=== PATIENT | female | born 1995 | race Caucasian/White ===

== ENCOUNTER 2019-12-06 15:47 | Outpatient (CLI) | payer MEDICAID ==
--- NOTE | 2019-12-06 16:25 | Non Stress Test Report ---
Non Stress Test Datetime Report Generated by CPN: 12/06/2019 16:25 DEMOGRAPHIC Test Number: 1 EGA NST: 37.3 INDICATION Indication for Study (NST) Other: doctors orders VITAL SIGNS Temperature - NST: 97.8 Pulse - NST: 90 RESP - NST: 18 NBPSYS NST: 132 NBPDIA NST: 82 MONITORING Monitor Explained: Monitor Explained; Test Explained; Patient Verbalized Understanding Time on Monitor: 12/06/2019 15:59 Time off Monitor: 12/06/2019 16:23 NST Duration: 24 NST INTERVENTIONS NST Interventions: PO Hydration Physician Notified NST: nrobertson,cnm BABY A: [id number] BABY A Movement : Present Contraction Frequency : irritability noted FHR Baseline : 135 Accelerations : 15X15 Decelerations : None Variability : Moderate 6-25bpm NST Review: Meets Criteria for Reactive NST NST Review and Verified By : Attila Schmitz RN NST Results: Reactive NST REPORT Report Trigger: Send Report
== END 2019-12-06 16:35 | disposition home or self-care (01) ==
LOC: LC 15:47
PROVIDERS: ATTEND Obstetrics & Gynecology
DX: O47.1 False labor at or after 37 completed weeks of gestation (principal); Z3A.37 37 weeks gestation of pregnancy
CPT/HCPCS: 59025; 84112

== ENCOUNTER 2019-12-31 18:16 | Inpatient (IN) | payer MEDICAID ==
[2019-12-31] MEDS ORDERED: RINGERS SOLUTION,LACTATED 300 ML IV ONE (18:28)
[2019-12-31] MEDS ORDERED: ACETAMINOPHEN 325 MG TABLET PO PRN (18:28)
[2019-12-31] MEDS ORDERED: ZOLPIDEM TARTRATE 5 MG TABLET PO PRN (18:28)
[2019-12-31] MEDS ORDERED: DINOPROSTONE 10 MG VAGINAL INSERT.SR PV ONE (18:28)
[2019-12-31] MEDS ORDERED: RINGERS SOLUTION,LACTATED 1,000 ML IV PRN ×2 (18:28)
[2019-12-31] MEDS ORDERED: RINGERS SOLUTION,LACTATED 1,000 ML IV ONE (18:28)
[2019-12-31] MEDS ORDERED: MAG HYDROX/AL HYDROX/SIMETH SUSP 30 ML UDCUP PO PRN (18:28)
[2019-12-31 19:27] LABS: URINE AMPHETAMINES SCREEN NEGATIVE; URINE BARBITURATES SCREEN NEGATIVE; URINE BENZODIAZEPINES SCREEN NEGATIVE; URINE COCAINE SCREEN NEGATIVE; URINE MARIJUANA (THC) SCREEN NEGATIVE; URINE METHADONE SCREEN NEGATIVE; URINE PHENCYCLIDINE SCREEN NEGATIVE
[2019-12-31] MEDS ORDERED: MISOPROSTOL 0.2 MG TABLET ONE (19:43)
[2019-12-31] MEDS ORDERED: DINOPROSTONE 10 MG VAGINAL INSERT.SR ONE (19:43)
[2019-12-31] MEDS ORDERED: LIDOCAINE 1% INJ-PF (10 MG/ML) 30 ML SDV ONE (19:43)
[2019-12-31] MEDS ORDERED: OXYTOCIN/0.9 % SODIUM CHLORIDE 30 UNIT/500 ML RTUINJ ONE (19:43)
[2019-12-31] MEDS ORDERED: OXYTOCIN 10 UNIT/ML VIAL ONE (19:43)
[2019-12-31 19:57] LABS: HEMATOCRIT 35.6 % (36.0-47.0); HEMOGLOBIN 12.2 g/dL (12.0-15.5); MEAN CORPUSCULAR HEMOGLOBIN 30.9 pg (27.0-33.4); MEAN CORPUSCULAR HGB CONC 34.4 g/dL (32.0-36.0); MEAN CORPUSCULAR VOLUME 90 fl (80-97); PLATELET COUNT 166 10^3/uL (150-450); RED BLOOD COUNT 3.96 10^6/uL (3.72-5.28); RED CELL DISTRIBUTION WIDTH 15.3 % (11.5-14.0); WHITE BLOOD COUNT 7.3 10^3/uL (4.0-10.5)
[2020-01-01] MEDS ORDERED: OXYTOCIN/0.9 % SODIUM CHLORIDE 30 UNIT/500 ML RTUINJ IV PRN ×2 (01:41→09:54)
[2020-01-01] MEDS ORDERED: PROMETHAZINE HCL INJ 25 MG/1 ML VIAL IV PRN (01:41)
[2020-01-01] MEDS ORDERED: ACETAMINOPHEN 650 MG SUPP.RECT PR PRN (01:41)
[2020-01-01] MEDS ORDERED: MAGNESIUM HYDROXIDE SUSP 30 ML UDCUP PO PRN (01:41)
[2020-01-01] MEDS ORDERED: PROMETHAZINE HCL 25 MG SUPP.RECT PR PRN (01:41)
[2020-01-01] MEDS ORDERED: DIBUCAINE 1% OINTMENT 28 GM TP PRN (01:41)
[2020-01-01] MEDS ORDERED: ZOLPIDEM TARTRATE 5 MG TABLET PO PRN (01:41)
[2020-01-01] MEDS ORDERED: PROMETHAZINE HCL 25 MG TABLET PO PRN (01:41)
[2020-01-01] MEDS ORDERED: GLYCERIN/WITCH HAZEL LEAF 1 EACH MED..WIPE TP PRN (01:41)
[2020-01-01] MEDS ORDERED: BENZOCAINE/MENTHOL AEROSOL SPRAY 56 ML TOP PRN (01:41)
[2020-01-01] MEDS ORDERED: PSEUDOEPHEDRINE HCL 30 MG TABLET PO PRN (01:41)
[2020-01-01] MEDS ORDERED: ACETAMINOPHEN WITH CODEINE #3 TABLET PO PRN ×2 (01:41)
[2020-01-01] MEDS ORDERED: DIPHENHYDRAMINE HCL 25 MG CAPSULE PO PRN (01:41)
[2020-01-01] MEDS ORDERED: MEASLES,MUMPS&RUBELLA VACC/PF 0.5 ML VIAL SUBCUT PRN (01:41)
[2020-01-01] MEDS ORDERED: ACETAMINOPHEN 325 MG TABLET PO PRN (01:41)
[2020-01-01] MEDS ORDERED: NA PHOS,M-B/NA PHOS,DI-BA (ADULT) 133 ML ENEMA PR PRN (01:41)
[2020-01-01] MEDS ORDERED: DIPH/PERTUSS(ACELL)/TETANUS VAC/PF 0.5 ML SYR (>=10YO) IM PRN (01:41)
--- NOTE | 2020-01-01 01:50 | Admission Physical ---
Datetime Report Generated by CPN: 01/01/2020 01:50 CURRENT ADMISSION Chief Complaint: Scheduled Induction of Labor Indication for Induction: Post Dates Admit Impression : Term, Intrauterine Admit Plan: Admit to Unit; Initiate Labor Protocol; Initiate Labor Induction Protocol ALLERGIES Medication Allergies: No Medication Allergies: No Known Allergies (12/31/2019) Latex: No Latex Allergies Food Allergies: none Environmental Allergies: none OBSTETRICAL HISTORY EDC: 12/24/2019 00:00 : 1 Para: 0 Term: 0 : 0 SAB: 0 IAB: 0 Ectopic: 0 Livin Cesareans: 0 VBACs: 0 Multiple Births: 0 Gestational Diabetes: No Rh Sensitization: No Incompetent Cervix: No IRON: No Infertility: No ART Treatment: No Uterine Anomaly: No IUGR: No Hx Previous C/S: No Macrosomia: No Hx Loss/Stillborn: No PIH: No Hx : No Placenta Previa/Abruption: No Depression/PP Depression: No PTL/PROM: No Post Hemorrhage: No Current Procedures: Ultrasound Obstetrical History Comments: g1-current SEE RECORDS Alcohol: No Marijuana : No Cocaine: No Other Illicit Drugs: No Cigarettes: Never Smoker. [id number] MEDICAL HISTORY Diabetes: No Blood Transfusion: No Pulmonary Disease (Asthma, TB): No Breast Disease: No Hypertension: No Counter Stacker Surgery: No Heart Disease: No Hosp/Surgery: No Autoimmune Disorder: No Anesthetic Complications: No Kidney Disease: No Abnormal Pap Smear: No Neuro/Epilepsy: No Psychiatric Disorders: No Other Medical Diseases: No Hepatitis/Liver Disease: No Significant Family History: No Varicosities/Phlebitis: No Trauma/Violence : No Thyroid Dysfunction: No INFECTIOUS HISTORY Gonorrhea: No Genital Herpes: No Chlamydia: No Tuberculosis: No Syphilis: No Hepatitis: No HIV/AIDS Exposure: No Rash or Viral Illness: No HPV: No PHYSICAL EXAM General: Normal HEENT: Normal Neurologic: Normal Thyroid: Normal Heart: Normal Lungs: Normal Breast: Normal Back: Normal Abdomen: Normal Genitourinary Exam: Normal Extremities: Normal DTRs: Normal Pelvic Type: Adequate Vital Signs: Reviewed; Within Normal Limits VAGINAL EXAM Dilatation: 1 Effacement: 50 Station: -3 MEMBRANES Membranes: Intact FETUS A EGA: 41.0 Monitoring: External US FHR- Baseline: 135 Variability: Moderate 6-25bpm Accelerations: 15X15 Decelerations: None FHR Category: Category I Admit Comment: G1 at 41.1 wks EGA for IOL d/t post dates -admit to LDR -NPO and IVFs -CEFM and toco -GBS negative -cervidil at 2114 -anticipate PLANS FOR LABOR AND DELIVERY Labor and Delivery: None Pain Management: Epidural Feeding Preference: Breast Benefit of Breast Feed Discussed: Yes Circumcision: Yes INFORMED CONSENT Signature: with User ID: Nicola : with User ID: Nicola
[2020-01-01] MEDS: IBUPROFEN 800 MG TABLET PO SCH ×3 (07:22→15:18)
--- NOTE | 2020-01-01 10:13 | L&D Progress Notes ---
PROGRESS NOTES Datetime Report Generated by CPN: 01/01/2020 10:13 PROGRESS NOTE Impression Other: IUP @ [id number] Procedures: Sterile Vag Exam Procedures- Other: removal of cervidil Plan: Continue Present Management; Induction Informed Consent Obtained: Vaginal Delivery; Induction of Labor; Risks, Benefits and Alternatives Discussed Vital Signs : Reviewed; Within Normal Limits Comment: S: breathing with contractions, reports them to be more painful and more frequent, no concerns at this time O: VSS, Cat I tracing, cervix as stated A: IUP @ [id number] stable, progressing well P: continue IOL will start pitocin at the end of the hour break. Pt to shower at this time, epidural/IV pain meds prn, will reasses in 3-4hrs or earlier prn VAGINAL EXAM Dilatation: 1 Effacement: 50 Station: -3 Contractions: irregular LAST VAGINAL EXAM-NURSING Nursing Exam Dilitation: 2.0 Nursing Exam Effacement: 80 Nursing Exam Station: -1 MEMBRANES Membranes: Intact FETUS A Monitoring: External US : 41.1 SIGNATURE SIGNATURE: [id number] Assignment: Wen Haro MD Signature: with User ID: [email or web address] : with User ID: [email or web address]
[2020-01-01] MEDS ORDERED: PROMETHAZINE HCL INJ 25 MG/1 ML VIAL IV ONE (11:12)
[2020-01-01] MEDS ORDERED: NALBUPHINE HCL INJ 10 MG/1 ML AMPULE IV ONE (11:12)
[2020-01-01] MEDS: FAMOTIDINE 20 MG TABLET PO SCH (11:29)
[2020-01-01] MEDS: FERROUS SULFATE 325 MG TABLET PO SCH (11:29)
[2020-01-01] MEDS: DOCUSATE SODIUM 100 MG CAPSULE PO SCH (11:29)
[2020-01-01] MEDS: PRENATAL VITAMIN W DHA CAPSULE PO SCH (11:30)
[2020-01-01] MEDS: SENNOSIDES/DOCUSATE 8.6-50 MG 1 EACH TABLET PO SCH (11:30)
[2020-01-01] MEDS ORDERED: PROMETHAZINE HCL INJ 25 MG/1 ML VIAL ONE (11:31)
[2020-01-01] MEDS ORDERED: NALBUPHINE HCL INJ 10 MG/1 ML AMPULE ONE (11:31)
--- NOTE | 2020-01-01 14:38 | L&D Progress Notes ---
PROGRESS NOTES Datetime Report Generated by CPN: 01/01/2020 14:38 PROGRESS NOTE Impression Other: IUP@ [id number] Procedures: Artificial ROM; Sterile Vag Exam Procedures- Other: removal of cervidil Plan: Continue Present Management; Induction Informed Consent Obtained: Vaginal Delivery; Induction of Labor; Risks, Benefits and Alternatives Discussed Vital Signs : Reviewed; Within Normal Limits Comment: S: sleeping in between contractions, no concerns at this time, agreeable to AROM O:VSS, cat I tracing, pit @ 20mu/min, cervix and contractions as stated A: IUP@[id number]-SNU stable, progressing well P: continue IOL, epidural prn, report given to Dr. Haro on pt's progress VAGINAL EXAM Dilatation: 1 Effacement: 50 Station: -3 Contractions: 1.5-5.5 LAST VAGINAL EXAM-NURSING Nursing Exam Dilitation: 3.0 Nursing Exam Effacement: 80 Nursing Exam Station: -1 MEMBRANES Membranes: Ruptured Amniotic Fluid Color: Clear FETUS A Monitoring: External US FHR Category: Category I : 41.1 SIGNATURE SIGNATURE: [id number] Assignment: Wen Haro MD Signature: with User ID: [email or web address] : with User ID: [email or web address]
[2020-01-01] MEDS ORDERED: EPHEDRINE SULFATE INJ 50 MG/1 ML AMPULE ONE ×2 (15:12→22:12)
[2020-01-01] MEDS ORDERED: FENTANYL/BUPIVACAINE/NS/PF 300 MCG/150 ML RTUINJ EPI ONE (15:13)
[2020-01-01] MEDS ORDERED: ROPIVACAINE HCL 0.2% INJ/PF (2 MG/ML) 20 ML SDV ONE (15:14)
--- NOTE | 2020-01-01 17:24 | L&D Progress Notes ---
PROGRESS NOTES Datetime Report Generated by CPN: 01/01/2020 17:23 PROGRESS NOTE Impression Other: IUP @ 41w1d Procedures: Intrauterine Pressure Catheter; Scalp Electrode; Sterile Vag Exam Procedures- Other: removal of cervidil Plan: Continue Present Management; Induction Informed Consent Obtained: Induction of Labor; Risks, Benefits and Alternatives Discussed Vital Signs : Reviewed; Within Normal Limits Comment: S: comfortable with epidural placement O: VSS, cervix as stated with small amount of caput, pit @ 20mu/min A: IUP @ 41w1d- status post epidural placement, had repetitive late decels then ephedrine given and back to Cat I tracing then Cat II again after placement of internal monitors P: continue IOL but will hold pitocin at this time, Pt being repositioned, will re-start pit with reactive strip VAGINAL EXAM Dilatation: 4 Effacement: 90 Station: -1 Contractions: 1.5-2 LAST VAGINAL EXAM-NURSING Nursing Exam Dilitation: 3.0 Nursing Exam Effacement: 80 Nursing Exam Station: -1 Nursing Exam Contractions: UTD d/t intermittent signal MEMBRANES Membranes: Ruptured Amniotic Fluid Color: Clear FETUS A Monitoring: External US FHR Category: Category II : 41.1 SIGNATURE SIGNATURE: [id number] Assignment: Wen Haro MD Signature: with User ID: [email or web address] : with User ID: [email or web address]
[2020-01-02] MEDS ORDERED: AMPICILLIN SOD INJ 2 GM VIAL ONE (01:15)
[2020-01-02] MEDS ORDERED: GENTAMICIN SULFATE INJ 80 MG/2 ML VIAL ONE (01:15)
[2020-01-02] MEDS ORDERED: ACETAMINOPHEN 325 MG TABLET ONE (01:15)
[2020-01-02] MEDS: ACETAMINOPHEN 325 MG TABLET PO ONE ×2 (01:35→10:11)
[2020-01-02] MEDS ORDERED: AMPICILLIN SOD INJ 2 GM VIAL IV ONE (01:45)
[2020-01-02] MEDS ORDERED: GENTAMICIN SULFATE INJ 80 MG/2 ML VIAL IV ONE (01:45)
[2020-01-02] MEDS ORDERED: IBUPROFEN 800 MG TABLET ONE (03:01)
[2020-01-02] MEDS: IBUPROFEN 800 MG TABLET PO SCH ×4 (03:02→21:01)
--- NOTE | 2020-01-02 03:20 | Delivery Summary ---
Del Sum A-C Datetime Report Generated by CPN: 01/02/2020 03:19 DELIVERY PERSONNEL DELIVERY PERSONNEL: [id number] Delivery Doctor:: Wen Haro MD Labor and Delivery Nurse:: Briana Rich RNwood bucker Nurse:: Jewell Harry RN Nursery Nurse:: Eden Rocha RN Soil And Plant Scientist/TAPE CUTTING MACHINE OPERATOR: Deanne Samaniego, ST MATERNAL INFORMATION Delivery Anesthesia: Epidural Medications After Delivery: Pitocin 30 Units in 500ml NS/D5W; Cytotec 1000mcg Per Rectum/Vagina Estimated Blood Loss (ml): 250 Maternal Complications: None LABOR SUMMARY EDC: 12/24/2019 00:00 No. Babies in Womb: 1 Attempted: No Labor Anesthesia: Epidural LABOR INFORMATION Reason for Induction: Post Dates Onset of Labor: 01/01/2020 21:29 Complete Dilatation: 01/02/2020 01:18 Cervical Ripening Agents: Cervidil Oxytocin: Induction Group B Beta Strep: neg Antibiotics # of Doses: n/a Steroids Given: None Reason Steroids Not Administered: Not Applicable MEMBRANES Membranes Rupture Method: Artificial Rupture of Membranes: 01/01/2020 14:12 Length of Rupture (hr): 11.60 Amniotic Fluid Color: Clear Amniotic Fluid Amount: Small Amniotic Fluid Odor: Normal STAGES OF LABOR Stage 1 hr: 3 Stage 1 min: 49 Stage 2 hr: 0 Stage 2 min: 30 Stage 3 hr: 0 Stage 3 min: 2 Total Time in Labor hr: 4 Total Time in Labor min: 21 VAGINAL DELIVERY Episiotomy: None Laceration #1: None Laceration Extension #1: N/A Laceration Repair: Not Applicable Sponge Count Correct: Yes Sharps Count Correct: Yes CSECTION DELIVERY Primary Indication: N/A Secondary Indication: N/A CSection Incidence: N/A Labor: N/A Elective: N/A BABY A INFORMATION Infant Delivery Date/Time: 01/02/2020 01:48 Method of Delivery: Vaginal Born in Route : No : N/A Forceps: N/A Vacuum Extraction: N/A Shoulder Dystocia : No PRESENTATION/POSITION BABY A Presentation: Cephalic Cephalic Presentation: Vertex Vertex Position: Left Occipital Anterior Breech Presentation: N/A PLACENTA INFORMATION BABY A Placenta Delivery Time : 01/02/2020 01:50 Placenta Method of Delivery: Spontaneous Placenta Status: Delivered SCORES BABY A Heart Rate 1 min: >100 bpm Resp Effort 1 min: Good Cry Reflex Irritability 1 min: Cough or Sneeze or Pulls Away Muscle Tone 1 min: Active Motion Color 1 min: Blue/Pale Resuscitation Effort 1 min: Tactile Stimulation SCORE 1 MIN: 8 Heart Rate 5 min: >100 bpm Resp Effort 5 min: Good Cry Reflex Irritability 5 min: Cough or Sneeze or Pulls Away Muscle Tone 5 min: Active Motion Color 5 min: Body [place], Extremities Blue Resuscitation Effort 5 min: Tactile Stimulation SCORE 5 MIN: 9 INFANT INFORMATION BABY A Gestational Age at Delivery: 41.2 Gestational Status: Late Term- 41- 41.6 Weeks Infant Outcome : Liveborn Infant Condition : Stable Infant Sex: Male IDENTIFICATION BABY A Infant Verification Date/Time: 01/02/2020 01:54 ID Band Number: [id number] Mother's Name Verified: Yes Infant RN Verifying Infant: , RN and Bhanu, RN WEIGHT/LENGTH BABY A Birthweight (gm): 3750 Infant Weight (lb): 8 Infant Weight (oz): 4 Infant Length (in): 20.50 Infant Length (cm): 52.07 CORD INFORMATION BABY A No. Cord Vessels: 3 Nuchal Cord : N/A Cord Blood Taken: Yes-For Eval (Mom's Blood Type - or O+) ASSESSMENT BABY A Infant Complications: Multiple Late Decels Physical Findings at Delivery: Within Normal Limits Infant Respirations: Appears Normal Skin Lap Bonder/ALS Called : No Infant Care By: Jermaine, RN Transferred To: Remains with Mother BABY B INFORMATION : N/A SIGNATURES Signature: with User ID: [email or web address]
[2020-01-02] MEDS ORDERED: AMPICILLIN SOD/SULBACTAM 3 GM VIAL IV SCH (03:30)
[2020-01-02 04:12] LABS: HEMATOCRIT 34.1 % (36.0-47.0); HEMOGLOBIN 11.7 g/dL (12.0-15.5); MEAN CORPUSCULAR HEMOGLOBIN 30.7 pg (27.0-33.4); MEAN CORPUSCULAR HGB CONC 34.5 g/dL (32.0-36.0); MEAN CORPUSCULAR VOLUME 89 fl (80-97); PLATELET COUNT 156 10^3/uL (150-450); RED BLOOD COUNT 3.82 10^6/uL (3.72-5.28); RED CELL DISTRIBUTION WIDTH 15.3 % (11.5-14.0); WHITE BLOOD COUNT 19.1 10^3/uL (4.0-10.5)
--- NOTE | 2020-01-02 09:43 | PDOC PROGRESS REPORT ---
Subjective-OB Progress Note for:: 12/26/19 Subjective: Sitting up in bed, hsb at BS, no c/o, voiding, , normal lochia Physical Exam (OB) Vital Signs: Temp Pulse Resp BP Pulse Ox 97.8 F 90 18 118/64 98 01/02/20 07:37 01/02/20 07:37 01/02/20 07:37 01/02/20 07:37 01/02/20 07:37 Intake & Output 01/01/20 01/02/20 01/03/20 06:59 06:59 06:59 Weight 110 kg - PIH/Pre-Eclampsia DTR's: 2 + Clonus: Negative Headache: Absent Epigastric Pain: No Visual Changes: No - Lochia Lochia Amount: Scant < 10 ml Lochia Color: Rubra/Red - Abdomen Description: Soft, Round Hernia Present: No Fundal Description: Firm, Midline Fundal Height: u/u - u/2 Objective-Diagnostic Laboratory: 01/02/20 03:54 01/02/20 01/02/20 03:54 03:54 WBC 19.1 H D RBC 3.82 Hgb 11.7 L Hct 34.1 L MCV 89 MCH 30.7 MCHC 34.5 RDW 15.3 H Plt Count 156 Blood Type O NEGATIVE Antibody Screen NEGATIVE Assessment and Plan(PN) - Assessment and Plan (1) Rh negative status during Qualifiers: Trimester: first trimester Qualified Code(s): O26.891 - Other specified related conditions, first trimester; Z67.91 - Unspecified blood type, Rh negative Is this a current diagnosis for this admission?: Yes (2) Maternal fever during labor, delivered Is this a current diagnosis for this admission?: Yes (3) Delivery normal Is this a current diagnosis for this admission?: Yes (4) Encounter for induction of labor Is this a current diagnosis for this admission?: Yes - Time Spent with Patient Time with patient: Less than 15 minutes Medications reviewed and adjusted accordingly: Yes - Disposition Anticipated Discharge: Home Within: within 24 hours
[2020-01-02] MEDS: FAMOTIDINE 20 MG TABLET PO SCH ×3 (10:10→21:01)
[2020-01-02] MEDS: FERROUS SULFATE 325 MG TABLET PO SCH ×3 (10:10→17:20)
[2020-01-02] MEDS: DOCUSATE SODIUM 100 MG CAPSULE PO SCH ×3 (10:10→17:20)
[2020-01-02] MEDS: SENNOSIDES/DOCUSATE 8.6-50 MG 1 EACH TABLET PO SCH (10:17)
[2020-01-02] MEDS: PRENATAL VITAMIN W DHA CAPSULE PO SCH (10:17)
[2020-01-03] MEDS: IBUPROFEN 800 MG TABLET PO SCH ×3 (05:15→22:19)
[2020-01-03] MEDS: PRENATAL VITAMIN W DHA CAPSULE PO SCH (09:37)
[2020-01-03] MEDS: SENNOSIDES/DOCUSATE 8.6-50 MG 1 EACH TABLET PO SCH (09:37)
[2020-01-03] MEDS: DOCUSATE SODIUM 100 MG CAPSULE PO SCH ×2 (09:37→18:05)
[2020-01-03] MEDS: FAMOTIDINE 20 MG TABLET PO SCH ×2 (09:37→22:18)
--- NOTE | 2020-01-03 09:37 | PDOC PROGRESS REPORT ---
Subjective-OB Progress Note for:: 01/03/20 - PP Day #1, doing well, O negative, rubella immune, , denies fever, chills. malaise, UOB voidng, in the NICU feeding her baby. Talked w/ pt via facetime Physical Exam (OB) Vital Signs: Temp Pulse Resp BP Pulse Ox 97.4 F 89 18 116/75 100 01/02/20 20:15 01/02/20 20:15 01/02/20 20:15 01/02/20 20:15 01/02/20 20:15 Intake & Output 01/02/20 01/03/20 01/04/20 06:59 06:59 06:59 Intake Total 1600 Balance 1600 - General General Appearance: Appears well, Alert In distress: None - PIH/Pre-Eclampsia DTR's: 2 + Clonus: Negative Headache: Absent Epigastric Pain: No Visual Changes: No - Lochia Lochia Amount: Small 10-25 ml Lochia Color: Rubra/Red - Abdomen Description: Soft, Round Hernia Present: No Fundal Description: Firm, Midline Fundal Height: u/u - u/2 - Respiratory Respiratory Status: No respiratory distress - Genitourinary Genitourinary Note: voiding - Extremities Upper extremity: Normal inspection - Neurological Cognition: Normal Orientation: AAOx4 - Psychological Associated symptoms: Normal affect, Normal mood Objective-Diagnostic Laboratory: 01/02/20 03:54 Assessment and Plan(PN) - Assessment and Plan (1) Delivery normal Is this a current diagnosis for this admission?: Yes (2) Encounter for induction of labor Is this a current diagnosis for this admission?: Yes (3) Maternal fever during labor, delivered Is this a current diagnosis for this admission?: Yes (4) Rh negative status during Qualifiers: Trimester: first trimester Qualified Code(s): O26.891 - Other specified related conditions, first trimester; Z67.91 - Unspecified blood type, Rh negative Is this a current diagnosis for this admission?: Yes Plan:: Ambulation encouraged, Routine PP orders, watch for reoccuring Maternal temp. - Time Spent with Patient Time with patient: Less than 15 minutes Medications reviewed and adjusted accordingly: Yes - Disposition Anticipated Discharge: Home
[2020-01-03] MEDS: FERROUS SULFATE 325 MG TABLET PO SCH ×2 (09:38→18:05)
[2020-01-04] MEDS: IBUPROFEN 800 MG TABLET PO SCH ×2 (05:45→13:17)
[2020-01-04 07:53] VITALS: BP 113/64
[2020-01-04] MEDS: DOCUSATE SODIUM 100 MG CAPSULE PO SCH (09:47)
[2020-01-04] MEDS: FERROUS SULFATE 325 MG TABLET PO SCH (09:47)
[2020-01-04] MEDS: SENNOSIDES/DOCUSATE 8.6-50 MG 1 EACH TABLET PO SCH (09:47)
[2020-01-04] MEDS: FAMOTIDINE 20 MG TABLET PO SCH (09:47)
[2020-01-04] MEDS: PRENATAL VITAMIN W DHA CAPSULE PO SCH (09:47)
--- NOTE | 2020-01-04 10:00 | PDOC DISCHARGE SUMMARY ---
Impression - Admit/DC Date/PCP Admission Date/Primary Care Provider: 12/31/19 18:16 JERROD FALCON MD Discharge Date: 01/04/20 - PP Day #2, doing well, denies fever or chills, O negative/ Baby is O negative, Rubella Immune, pt plans to Nest over night if baby is unable to d/c home today - Discharge Diagnosis (1) Delivery normal Is this a current diagnosis for this admission?: Yes (2) Encounter for induction of labor Is this a current diagnosis for this admission?: Yes (3) Maternal fever during labor, delivered Is this a current diagnosis for this admission?: Yes (4) Rh negative status during Is this a current diagnosis for this admission?: Yes - Additional Information Resuscitation Status: Full Code Discharge Diet: As Tolerated, Regular Discharge Activity: Activity As Tolerated, No Lifting Over 10 Pounds, Pelvic Rest Referrals: JERROD FALCON MD [Primary Care Provider] - Prescriptions: Ibuprofen [Motrin 800 mg Tablet] 800 mg PO Q8 #60 tablet Home Medications: Pnv No.95/Ferrous Fum/Folic AC [ Caplet] 1 cap PO DAILY 12/06/19 Ibuprofen [Motrin 800 mg Tablet] 800 mg PO Q8 #60 tablet 01/04/20 HPI Reason(s) for Admission: Induction of Labor Procedures: NST, Ultrasound, Other - fever during labor Intrapartum Procedure(s): Spontaneous Vaginal Delivery Hospital Course Hospital Course: normal Results Laboratory Results: WBC 19.1 10^3/uL (4.0-10.5) H D 01/02/20 03:54 RBC 3.82 10^6/uL (3.72-5.28) 01/02/20 03:54 Hgb 11.7 g/dL (12.0-15.5) L 01/02/20 03:54 Hct 34.1 % (36.0-47.0) L 01/02/20 03:54 MCV 89 fl (80-97) 01/02/20 03:54 MCH 30.7 pg (27.0-33.4) 01/02/20 03:54 MCHC 34.5 g/dL (32.0-36.0) 01/02/20 03:54 RDW 15.3 % (11.5-14.0) H 01/02/20 03:54 Plt Count 156 10^3/uL (150-450) 01/02/20 03:54 Urine Opiates Screen NEGATIVE 12/31/19 18:30 Urine Methadone Screen NEGATIVE 12/31/19 18:30 Ur Barbiturates Screen NEGATIVE 12/31/19 18:30 Ur Phencyclidine Scrn NEGATIVE 12/31/19 18:30 Ur Amphetamines Screen NEGATIVE 12/31/19 18:30 U Benzodiazepines Scrn NEGATIVE 12/31/19 18:30 Urine Cocaine Screen NEGATIVE 12/31/19 18:30 U Marijuana (THC) Screen NEGATIVE 12/31/19 18:30 RPR NONREACTIVE (NONREACTIVE) 12/31/19 19:07 Blood Type O NEGATIVE 01/02/20 03:54 Antibody Screen NEGATIVE 01/02/20 03:54 Plan Plan of Treatment: d/c home, f/up with [facility] in 4 wks. Fever precautions reviewed Time Spent: Less than 30 Minutes
== END 2020-01-04 14:15 | disposition home or self-care (01) | DRG 806 ==
LOC: LR 18:16 → 2N 01-02 04:03
PROVIDERS: ADMIT Obstetrics & Gynecology; ATTEND Obstetrics & Gynecology
PROC: 3E033VJ Introduction of Other Hormone into Peripheral Vein, Percutaneous Approach (ICD-10-PCS; 2020-01-01)
PROC: 10907ZC Drainage of Amniotic Fluid, Therapeutic from Products of Conception, Via Natural or Artificial Opening (ICD-10-PCS; 2020-01-01)
PROC: 10E0XZZ Delivery of Products of Conception, External Approach (ICD-10-PCS; principal; 2020-01-02)
DX: O48.0 Post-term pregnancy (principal); O75.2 Pyrexia during labor, not elsewhere classified; Z37.0 Single live birth; O26.893 Other specified pregnancy related conditions, third trimester; Z67.91 Unspecified blood type, Rh negative; Z3A.41 41 weeks gestation of pregnancy
CPT/HCPCS: 1967; 36415; 80307; 85027; 86592; 86850; 86900; 86901; C1758; J0290; J1580; J2300; J2550; J2590; J2795; J3010; J3490